=== PATIENT | female | born 2000 | race Caucasian/White ===

== ENCOUNTER 2021-05-23 16:51 | Inpatient (IN) | payer OTHER ==
[~2021-05-23] VITALS: Ht 142.2 cm; Wt 63.5 kg
[2021-05-24] MEDS ORDERED: PRENATAL TABLE1 EAC1 PO (11:22)
== END 2021-05-27 11:16 | disposition home or self-care (01) | DRG 832 ==
LOC: OBS/DEL 16:51 → OB/GYN 05-24 10:57 → LDR 05-24 10:57 → OBS/DEL 05-24 10:57 → OB/GYN 05-24 13:46
PROVIDERS: ADMIT Obstetrics & Gynecology Obstetrics; ATTEND Obstetrics & Gynecology Obstetrics
PROC: BY4FZZZ Ultrasonography of Third Trimester, Single Fetus (ICD-10-PCS; 2021-05-23)
PROC: 4A1HXFZ Monitoring of Products of Conception, Cardiac Rhythm, External Approach (ICD-10-PCS; principal; 2021-05-24)
DX: O23.43 Unspecified infection of urinary tract in pregnancy, third trimester (principal); N39.0 Urinary tract infection, site not specified; O46.8X3 Other antepartum hemorrhage, third trimester; Z3A.32 32 weeks gestation of pregnancy

== ENCOUNTER 2021-07-14 20:28 | Inpatient (IN) | payer OTHER ==
[~2021-07-14] VITALS: Ht 142.2 cm; Wt 64.9 kg
[~2021-07-14 20:28] MED LIST: PRENATAL TABLE1 EAC1 PO
== END 2021-07-16 12:51 | disposition home or self-care (01) | DRG 807 ==
LOC: OB/GYN 20:28 → LDR 20:28 → OB/GYN 07-15 00:15
PROVIDERS: ADMIT Obstetrics & Gynecology Obstetrics; ATTEND Obstetrics & Gynecology Obstetrics
PROC: 10E0XZZ Delivery of Products of Conception, External Approach (ICD-10-PCS; principal; 2021-07-14)
PROC: 4A1HXCZ Monitoring of Products of Conception, Cardiac Rate, External Approach (ICD-10-PCS; 2021-07-14)
DX: O80 Encounter for full-term uncomplicated delivery (principal); Z37.0 Single live birth; Z3A.39 39 weeks gestation of pregnancy; Z20.822 Contact with and (suspected) exposure to COVID-19